=== PATIENT | female | born 1985 | race American Indian/Alaskan Native ===

== ENCOUNTER 2017-06-01 23:40 | Emergency (ER) | payer SELFPAY ==
[2017-06-02 00:23] LABS: Urine Drugs of Abuse Note Disclamer
[2017-06-02 00:30] LABS: Bilirubin,Urine NEG (Negative); Blood,Urine NEG (Negative); Ketones,Urine NEG (Negative); Leukocyte Esterase,Urine TR (Negative); Mucus,Urine FEW /HPF; Nitrite,Urine NEG (Negative); Protein,Urine <15 mg/dL mg/dL (Negative)
--- NOTE | 2017-06-02 00:43 | Emergency Department Report ---
ED Psych HPI - General Chief Complaint: Psych Stated Complaint: MH/COMBATIVE Time Seen by Provider: 06/02/17 00:37 Source: police Mode of arrival: Ambulatory - History of Present Illness Initial Comments: unknown age female brought by pd to ed for wandering around confused in streets , 'she's on something", states screaming and yelling and talking to self -: unknown Associated Psychiatric Symptoms: racing thoughts, auditory hallucinations, delusions - Related Data Allergies Allergy/AdvReac Type Severity Reaction Status Date / Time Unable to Assess Allergy Unverified 06/02/17 00:05 ED Review of Systems ROS: Stated complaint: MH/COMBATIVE Other details as noted in HPI Comment: Unobtainable due to pts medical conditions ED Past Medical Hx - Past Medical History Previous Medical History?: No - Surgical History Past Surgical History?: No - Social History Smoking Status: Never Smoker Substance Use Type: None ED Physical Exam - General Limitations: Altered Mental Status General appearance: other (arousable and follows some commands good airway but intoxicated) - Head Head exam: Present: atraumatic, normocephalic - Eye Eye exam: Present: PERRL, EOMI - ENT ENT exam: Present: normal exam, other (protecting airway normal gag) - Neck Neck exam: Present: normal inspection. Absent: tenderness, meningismus - Respiratory Respiratory exam: Present: normal lung sounds bilaterally. Absent: respiratory distress, wheezes, rales, rhonchi, stridor, accessory muscle use, prolonged expiratory - Cardiovascular Cardiovascular Exam: Present: regular rate, normal heart sounds - GI/Abdominal GI/Abdominal exam: Present: soft. Absent: distended, tenderness, guarding, rebound, organomegaly, mass, bruit, pulsatile mass - Extremities Exam Extremities exam: Present: normal inspection - Back Exam Back exam: Present: normal inspection - Neurological Exam Neurological exam: Present: alert, other (arousal but intoxicated) - Psychiatric Psychiatric exam: Present: agitated ED Course Vital Signs 06/02/17 06/02/17 00:06 01:18 Temperature 98 F 98 F Pulse Rate 107 H 107 H Respiratory 22 20 Rate Blood Pressure 129/63 Blood Pressure 129/63 [Right] O2 Sat by Pulse 98 98 Oximetry ED Medical Decision Making - Lab Data Result diagrams: 06/02/17 00:28 06/02/17 00:28 - EKG Data EKG shows normal: sinus rhythm, ST-T waves (no ischemic changes) - EKG Data When compared to previous EKG there are: previous EKG unavailable - Medical Decision Making Patient with meth and cocaine intoxication mild rhabdo IV fluids given 1013 placed for psychosis patient has a repeat CK pending and will be evaluated by psychiatry for psychosis Critical care attestation.: If time is entered above; I have spent that time in minutes in the direct care of this critically ill patient, excluding procedure time. ED Disposition Clinical Impression: Psychosis, Polysubstance abuse Disposition: [id number] PSY HOSP/PSY UNIT Is pt being admited?: Yes Condition: Stable Time of Disposition: 06:10
[2017-06-02] MEDS ORDERED: ATIVAN IM ONE (00:58)
[2017-06-02] MEDS ORDERED: BENADRYL IM ONE (01:02)
[2017-06-02 01:04] LABS: Calcium 8.8 mg/dL (8.4-10.2); Chloride 104.7 mmol/L (98-107); Potassium 3.7 mmol/L (3.6-5.0)
[2017-06-02] MEDS ORDERED: ATIVAN ONE (01:04)
[2017-06-02 01:08] LABS: Basophils % (Auto) 0.4 % (0.0-1.8); Hematocrit 36.4 % (30.3-42.9); Hemoglobin 12.2 gm/dl (10.1-14.3); Mean Corpuscular HGB Conc 34 % (30-34); Mean Corpuscular Hemoglobin 29 pg (28-32); Mean Corpuscular Volume 88 fl (79-97); Platelet Count 352 K/mm3 (140-440); Red Blood Count 4.15 M/mm3 (3.65-5.03); Red Cell Distribution Width 14.4 % (13.2-15.2); White Blood Count 8.1 K/mm3 (4.5-11.0)
[2017-06-02] MEDS ORDERED: NACL 0.9% 1000 ML 1,000 ML IV ONE (03:59)
[2017-06-02] MEDS ORDERED: HALDOL IM ONE (05:04)
--- NOTE | 2017-06-04 12:34 | Consultation ---
History of Present Illness - Reason for Consult Consult date: 06/04/17 Reason for consult: Psychiatry Follow-up Requesting physician: KELLIE COLLAZO - Chief Complaint Chief complaint: "I want to go home" - History of Present Psychiatric Illness 32 y.o. AA female presenting to [facility] for bizarre behavior. Today the patient is disorganized during the assessment. She could not tell me what happened to her prior to coming to the hospital. She did state that she was using "Ice" a recreational street drug prior to her admission. She had to be redirected several times to keep her on topic. Her thought process is tangential. She is adamant about going to "someplace" when discharged. Patient is a poor historian at this time. Medications and Allergies Allergies Allergy/AdvReac Type Severity Reaction Status Date / Time Unable to Assess Allergy Unverified 06/02/17 00:05 Past psychiatric history - Past Medical History Past Medical History: No medical history Past Surgical History: No surgical history - past Psychiatric treatment and history psychiatric treatment history: Unable to obtain - Social History Social history: other (Homeless) Mental Status Exam - Vital signs Last Vital Signs Temp 99.1 F 06/03/17 10:58 Pulse 89 06/04/17 07:23 Resp 19 06/03/17 10:58 BP 110/64 06/04/17 07:23 Pulse Ox 98 06/04/17 07:23 - Exam Narrative exam: MSE: Appearance: calm, disheveled Behavior: regular eye contact Speech: regular rate and tone Mood: "okay" Affect: labile Thought Process: tangential Thought Content: denies SI/HI's and AVH's, disorganized Motor Activity: sitting up in bed Cognition: A/O x3 Insight: poor Judgment: poor Results Result Diagrams: 06/02/17 00:28 06/02/17 00:28 Abnormal lab results 06/04/17 Range/Units 08:33 Total Creatine Kinase 252 H (30-135) units/L All other labs normal. Assessment and Plan Assessment and plan: Impression: Unspecified Psychosis. Substance Use DO (cocaine/amphetamines). Today the patient is disorganized during the assessment. Patient positive for cocaine and amphetamines. DDx: R/O Schizophrenia, R/O Substance Induced Psychosis Recommendation/Plan: Continue 1013 with placement to inpatient psy services. Start Zyprexa 5 mg PO HS for psychosis. Discussed possible metabolic side effects of Zyprexa with patient.
--- NOTE | 2017-06-05 12:04 | Progress Note ---
Subjective - Reason for Consult Consult date: 06/05/17 Reason for consult: Psychiatry Follow-up - Chief Complaint Chief complaint: "Hello" 32 y.o. AA female presenting to [facility] for bizarre behavior. Today the patient is calm during the assessment. She stated that she would like to shower and clean herself up when allowed. She could not tell me where she reside at this time. She stated this is the most rest she has gotten in days. She denies SI/HI's and AVH's. She denies side effects of her medication. Mental Status Exam - Vital signs Last Vital Signs Temp 98.3 F 06/04/17 22:00 Pulse 76 06/04/17 22:00 Resp 18 06/04/17 22:00 BP 114/66 06/04/17 22:00 Pulse Ox 100 06/04/17 22:00 - Exam Narrative exam: MSE: Appearance: calm, disheveled Behavior: regular eye contact Speech: regular rate and tone Mood: "okay" Affect: congruent to mood Thought Process: circumstantial Thought Content: denies SI/HI's and AVH's Motor Activity: sitting up in bed Cognition: A/O x3 Insight: variable Judgment: variable Assessment and Plan Impression: Unspecified Psychosis. Substance Use DO (cocaine/amphetamines). Today the patient is disorganized during the assessment. Patient positive for cocaine and amphetamines. DDx: R/O Schizophrenia, R/O Substance Induced Psychosis Recommendation/Plan: Evaluate 1013 in 24 hours to determine proper dispo. Continue Zyprexa 5 mg PO HS for psychosis. Discussed possible metabolic side effects of Zyprexa with patient.
[2017-06-07 09:10] LABS: Creatine Kinase MB 1.2 ng/mL (0.0-4.0)
[2017-06-07 09:12] LABS: Anion Gap 18 mmol/L; BUN/Creatinine Ratio 19; Blood Urea Nitrogen 15 mg/dL (7-17); Calcium 8.5 mg/dL (8.4-10.2); Carbon Dioxide 22 mmol/L (22-30); Chloride 105.7 mmol/L (98-107); Creatine Kinase 60 units/L (30-135); Glucose 116 mg/dL (65-100); Sodium 142 mmol/L (137-145)
[2017-06-07 09:16] VITALS: BP 110/68
--- NOTE | 2017-06-07 10:31 | Progress Note ---
Subjective - Reason for Consult Consult date: 06/07/17 Reason for consult: Psychiatry Follow-up - Chief Complaint Chief complaint: "Good morning" 32 y.o. AA female presenting to [facility] for bizarre behavior. Today the patient is calm and cooperative during the assessment. Per the staff, patient has been completing her ADL's with no behavioral disturbance. She stated that she want to return to her hotel in the [place] area. She did state that she would like a referral to outpatient rehab services once discharged. She denies SI/HI's and AVH's. She denies any side effects of her medication. Mental Status Exam - Vital signs Last Vital Signs Temp 98 F 06/07/17 09:15 Pulse 78 06/07/17 09:15 Resp 18 06/07/17 09:15 BP 110/68 06/07/17 09:15 Pulse Ox 100 06/05/17 12:53 - Exam Narrative exam: MSE: Appearance: calm, cooperative Behavior: regular eye contact Speech: regular rate and tone Mood: "okay" Affect: congruent to mood Thought Process: linearl Thought Content: denies SI/HI's and AVH's Motor Activity: sitting up in bed Cognition: A/O x3 Insight: fair Judgment: fair Assessment and Plan Impression: Unspecified Psychosis. Substance Use DO (cocaine/amphetamines). Today the patient is calm and cooperative during the assessment. Patient positive for cocaine and amphetamines. DDx: R/O Schizophrenia, R/O Substance Induced Psychosis Recommendation/Plan: Rescind 1013. Continue Zyprexa 5 mg PO HS for psychosis. Discussed possible metabolic side effects of Zyprexa with patient. Patient given outpatient psy/rehab services to [facility]. Discusses the importance to abstain from recreational drug use. [employer] involvement, patient may need assistance with a ride to her residence and possible placement.
== END 2017-06-07 15:54 | disposition home or self-care (01) ==
LOC: ED 23:40 → EEVIPCON 23:40 → ED 06-07 15:54
DX: F29 Unspecified psychosis not due to a substance or known physiological condition (principal); F19.10 Other psychoactive substance abuse, uncomplicated
CPT/HCPCS: 36415; 80048; 80307; 81001; 82550; 82553; 84703; 85025; 96372; 99284; G0480; J1200; J2060; 80320